=== PATIENT | male | born 1995 | race Caucasian/White ===

== ENCOUNTER 2019-02-17 08:56 | Emergency (ER) | payer OTHER ==
[~2019-02-17] VITALS: Ht 177.8 cm; Wt 86.2 kg
[2019-02-17] MEDS ORDERED: NOHOMEMEDICATIONS (09:10)
[2019-02-17] MEDS ORDERED: AMOXICILLIN 50500 MG PO (09:27)
[2019-02-17 09:38] VITALS: BP 122/80
== END 2019-02-17 09:38 | disposition home or self-care (01) ==
LOC: M.ERS 08:56
DX: J06.9 Acute upper respiratory infection, unspecified (principal)

== ENCOUNTER 2019-02-28 12:08 | Emergency (ER) | payer OTHER ==
[~2019-02-28] VITALS: Ht 177.8 cm; Wt 86.2 kg
[~2019-02-28 12:08] MED LIST: AMOXICILLIN 50500 MG PO; NOHOMEMEDICATIONS
[2019-02-28] MEDS ORDERED: BACTRIM DS TAB1 EACH PO (13:25)
[2019-02-28 13:48] VITALS: BP 117/74
== END 2019-02-28 13:50 | disposition home or self-care (01) ==
LOC: M.ERS 12:08
DX: L02.411 Cutaneous abscess of right axilla (principal)